=== PATIENT | male | born 1965 ===

== ENCOUNTER 2018-08-03 10:29 | Outpatient (CLI) | payer OTHER | END 2018-08-03 10:30 | disposition home or self-care (01) | LOC: C.PAT 10:29 | DX: M54.5 Low back pain (principal); M51.26 Other intervertebral disc displacement, lumbar region; M51.27 Other intervertebral disc displacement, lumbosacral region; M43.16 Spondylolisthesis, lumbar region ==

== ENCOUNTER 2018-08-19 06:09 | Inpatient (IN) | payer OTHER ==
[2018-08-19 06:39] VITALS: BMI 35.2
[2018-08-19] MEDS ORDERED: Bacitracin 50,000 UNIT in Sodium Chloride 0.9% Irrig 1,000 ML IR SCH (07:30)
[2018-08-19] MEDS ORDERED: Absorbable Gelatin Sponge Size 100 ONE (07:32)
[2018-08-19] MEDS ORDERED: Bupivacaine HCl 0.5% PF (10 ml) Inj ONE ×2 (07:34→13:51)
[2018-08-19] MEDS ORDERED: Lidocaine/Epinephrine 1% 1:100000 10 ML IJ ONE (07:34)
[2018-08-19] MEDS ORDERED: ceFAZolin 1 gm in NS 2 GM/200 ML BAG IVPB ONE (07:37)
[2018-08-19] MEDS ORDERED: Propofol 10 mg/ml 1,000 MG/100 ML VIAL ONE ×2 (07:43→08:31)
[2018-08-19] MEDS ORDERED: Remifentanil 1 mg/3 ml Vial IV ONE ×3 (07:44→11:51)
[2018-08-19] MEDS ORDERED: Propofol 10 mg/ml Inj (20 ML) ONE ×9 (07:51→13:05)
[2018-08-19] MEDS ORDERED: Rocuronium 10 mg/ml (5 ml) ONE (07:52)
[2018-08-19] MEDS ORDERED: Succinylcholine Chloride 20 mg/ml Syr (5 ml) IV ONE (07:52)
[2018-08-19] MEDS ORDERED: Midazolam 2 MG/2 ML VIAL ONE (07:54)
[2018-08-19] MEDS ORDERED: ePHEDrine 50 mg/ml Inj ONE (08:23)
[2018-08-19] MEDS ORDERED: Phenylephrine 10 mg/ml Inj ONE (08:26)
[2018-08-19] MEDS: Thrombin Topical 5,000 Int Units Spray Kit ONE ×2 (09:08→13:24)
[2018-08-19] MEDS ORDERED: Bupivacaine Liposomal Inj 20 ml INFIL ONE (11:41)
[2018-08-19] MEDS ORDERED: Sodium Chloride 0.9% 20 ML IV ONE (11:48)
[2018-08-19] MEDS ORDERED: Thrombin Topical 20,000 Intl Units Spray Kit TOP ONE (13:26)
[2018-08-19] MEDS ORDERED: Bacitracin Ointment 30 GM TUBE ONE (13:53)
[2018-08-19] MEDS ORDERED: HYDROmorphone 0.5 mg/0.5 ml ISec IVP PRN (14:22)
--- NOTE | 2018-08-19 16:20 | RAD ---
Date of service: 08/19/2018 PROCEDURE: Intraoperative fluoroscopy HISTORY: LUMBAR DISC DERANGEMENT COMPARISON: Not available TECHNIQUE: Intraoperative fluoroscopy was provided for lumbar spinal fixation. FINDINGS: Multiple fluoroscopic spot films are submitted during progressive stages of lumbar spinal fixation. IMPRESSION: Fluoroscopy provided.
[2018-08-19] MEDS: Potassium Ch 20mEq in D5-1/2NS 1,000 ML IV SCH (17:30)
[2018-08-20] MEDS: Potassium Ch 20mEq in D5-1/2NS 1,000 ML IV SCH ×4 (03:21→20:30)
--- NOTE | 2018-08-20 06:31 | OP ---
PROCEDURE DATE: 08/19/2018 PREOPERATIVE DIAGNOSIS: Lumbar disk derangement with radiculopathy and chronic low back pain. POSTOPERATIVE DIAGNOSIS: Lumbar disk derangement with radiculopathy and chronic low back pain. PROCEDURE: L4-L5, L5-S1 decompression discectomy, interbody fusion, segmental pedicle screw fixation, posterolateral fusion with iliac autograft. SURGEON: Tariq Vasquez MD CO-SURGEON: Dr Jimmy Glover TYPE OF ANESTHESIA: General endotracheal. ESTIMATED BLOOD LOSS: 1200 mL; 500 mL returned via Cell Saver. COMPLICATIONS: None. JUSTIFICATION: The patient is status post an on-the-job accident low back pain, radiating pain down his lower extremities. He failed rather extensive conservative workup. MRI documented a grade 1 spondylolisthesis with foraminal stenosis at L4-L5 and a severe prolapse with again foraminal stenosis at L5-S1. The patient was offered operative intervention via discectomy interbody fusion, and segmental fixation. The nature of the procedure, the rationale behind it, potential risks and complications, realistic chance of success, recovery time and long-term outlook were all delineated for him through a chief administrative officer. All his questions were answered. He fully understood all of the above and elected to proceed as offered. DESCRIPTION OF PROCEDURE: The patient was taken to the operating room. He was hooked up to neurophysiological monitoring carefully, intubated and anesthetized. He was placed in a Avelino frame in a prone position. Care was taken to protect his face, eyes, endotracheal tube and all bony prominences. His low back area was then hair clipped, scrubbed with acetone and scrub painted and draped in the usual sterile manner. Incision was made overlying the spinous process at L3 down to the sacrum. The Bovie cautery was used to incise the fascia, strip the paraspinal muscles off the spinous processes, lamina of L4 through the sacrum. The exposure was widened out bilaterally to expose the L4 and L5 transverse processes and the sacral ala bleeding controlled throughout with bipolar cautery and thrombinated Gelfoam. At this point, we performed bone harvestation. A 5-gauge trocar was inserted directly into the right superior posterior iliac crest. Approximately 120 mL of bone marrow was aspirated. This was spun down to obtain bone marrow mesenchymal cells which were later used in the bone fusion. Decompression was begun with a Leksell rongeur. The top of the sacrum, the entire L5 spinous process and the inferior L4 removed. The L5 lamina was pinned down as were some of the facets. Again this bone was later used in the bone fusion. At this point, we began the decompression centrally with various sized Kerrison rongeurs performing a central laminectomy from L5-S1 through the entire L5 through the inferior two-thirds of L4. Thecal sac was identified and protected throughout. We then extended the decompression laterally bilaterally to perform generous medial facetectomies at both L4-L5 and L5-S1. The patient had tremendous amount of reactive arthrosis that would be secondary to the slippage at L4-L5 and the collapse at L4-S1. Copious amounts of drilling and use of Kerrison were required to expose the lateral disk at each of these levels. Particularly on the left at L4-S1, there was significant amounts of disk material that were actually digging into the thecal sac and the S1 nerve root that we had to remove via micro-technique i.e., small curette and a 2-mm Kerrison. Disk decompression was begun. Attention was turned to the discectomy interbody fusion. First the right S1 nerve root was gently retracted medially. The disk was then incised. It was markedly collapsed and we required actually an 8-mm scraper to be inserted to begin the discectomy. We used 8 to 11 mm scrapers after which the endplate above all disk material was removed from the right side. The endplate above and below decorticated with various size large curettes. This identical procedure was performed back on the patient's left side after which we packed the disk space with narrow impregnated sponges, additional allograft and products of decompression. We then placed a 9 x 10 mm DePuy carbon fiber fusion cage again filled with these products. It was tapped into the interspace until it was well countersunk and this identical procedure then performed back on the right side. Visual inspection and lateral fluoroscopy confirmed excellent position of both implants. This procedure was then repeated at L4-L5 level. Again the right L5 nerve root gently retracted medially. This was incised, grossly emptied the disk material with pituitary rongeurs and curettes, 8 through 11 mm scrapers were then used. Then the endplate above and below decorticated as well. This procedure was then performed back on the left side after which we placed 9 x 11 mm fusion cages. Again this was tapped into the interspace first on the left side and then on the right and again visual inspection and lateral fluoroscopy confirmed excellent position of both of these implants. We then used the high-speed drill to decorticate the lateral gutters which included the transverse processes at both levels and the sacral ala as well as the lateral facets. Then placement of radicular screws was performed. Technique was used identifying the pedicular entrance both visually as well as with internal delineation with a [place] instrument as well as fluoroscopically. Cortical surface was then drilled. A gearshift passed down the barrel of the pedicle into the vertebral body and finally the appropriate sized screw was placed. Additionally, we used a ball-tipped probe to sound the passageway at each of the six screw points to ensure no breach. Lastly, the gearshift and all screws were stimulated with electrical current while monitoring EMG activity. No screw elicited any EMG activity greater than 15 milliamps. Using this technique, we placed 6.0 diameter screws of various lengths bilaterally at L4 and L5, 7.0 diameter screws of 40 mm length bilaterally at S1. Again final AP and lateral fluoroscopy confirmed excellent position of all 7 screws and none elicited an EMG activity less than 15 milliamps. We then placed the appropriate size WARSTUFFuy titanium locking rods into the three screw-head receptacles at each site. Locking nuts were placed and torque wrenched tightly. Lastly we placed the appropriate sized cross connector between the L4 and L5 screws bilaterally and its three set points were torqued tightly. Lastly we placed all remaining bone graft material into the lateral gutters which were packed to achieve the posterolateral fusion. Final AP and lateral x-ray confirmed excellent position of this construct. At this point, it was ensured that there was no remaining bone graft or foreign matter in and around the thecal sac. This was liberally irrigated with antibiotic solution. It was covered with a layer of thrombinated powder Gelfoam followed by a layer thrombinated solid Gelfoam. The muscle was reapproximated using interrupted 0 Vicryl, the fascia closed using a tight interrupted 0 Vicryl stitch. The wound again irrigated with antibiotic solution. The subcutaneous closed in two separate layers of 2-0 Vicryl. The skin closed with batsheva. Bacitracin ointment and a heavyset dressing was placed. The patient was turned back onto a supine position on a stretcher, easily extubated and noted to be moving his lower extremities with good strength on his way to the recovery room. Neurophysiological monitoring that is free running EMG has a couple of bursts of activity during the decompression but was stable at the end and essentially these remained at their baseline at the end. All counts were correct with the exception of one small cottonoid that was strung up into the drill and shredded. Furthermore, we did take a final AP and lateral x-ray. There was no evidence of any cottonoid or any foreign material other than the intended screws and locking rods. No complications. The patient delivered in a stable and satisfactory condition to the recovery room. Tariq Vasquez MD
--- NOTE | 2018-08-20 11:05 | CP.PCM.PN ---
Subjective - Date & Time of Evaluation Date of Evaluation: 08/20/18 Time of Evaluation: 11:04 - Subjective Subjective: pod1 c/o nausea pain level 3-4/10 no leg pain c/o some numbness in right foot he hs 5/5 st dressing clean mild partial L% dec sensation on right will chnge pain meds and adv act Objective - Vital Signs/Intake and Output Vital Signs (last 24 hours): Temp Pulse Resp BP Pulse Ox 98.9 F 107 H 20 131/75 95 08/20/18 08:47 08/20/18 08:47 08/20/18 08:47 08/20/18 08:47 08/20/18 08:47 Intake and Output: 08/20/18 08/20/18 06:59 18:59 Intake Total 1440 Output Total 1600 Balance -160 - Medications Medications: Current Medications Acetaminophen (Tylenol 325mg Tab) 650 mg PO Q6 PRN PRN Reason: Fever >100.4 F Docusate Sodium (Colace) 100 mg PO BID [facility] Last Admin: 08/20/18 09:34 Dose: 100 mg Hydromorphone/Sodium Chloride (Dilaudid Network Security Consultant) 6 mg IV Q4H PRN; Protocol PRN Reason: Pain, moderate (4-7) Last Admin: 08/20/18 05:45 Dose: 6 mg Potassium Chloride/Dextrose/Sod Cl (Potassium Chl 20 Meq In D5-1/2ns) 1,000 mls @ 100 mls/hr IV .Q10H [facility] Last Admin: 08/20/18 03:21 Dose: 100 mls/hr Ondansetron HCl (Zofran Inj) 4 mg IVP DAILY@ONCE PRN PRN Reason: Nausea/Vomiting Last Admin: 08/20/18 09:34 Dose: 4 mg
[2018-08-20] MEDS: Oxycodone/Acetaminophen 5/325 mg Tab PO PRN ×3 (11:46→19:54)
[2018-08-20] MEDS: Aluminum Hydroxide/Magnesium Hydroxide Susp (30 mL) PO PRN (20:37)
[2018-08-20] MEDS: oxyCODONE 20 mg ER Tab (oxyCONTIN) PO SCH (21:58)
[2018-08-21] MEDS: Oxycodone/Acetaminophen 5/325 mg Tab PO PRN ×5 (00:01→19:21)
[2018-08-21] MEDS: Aluminum Hydroxide/Magnesium Hydroxide Susp (30 mL) PO PRN ×2 (02:12→10:05)
--- NOTE | 2018-08-21 06:18 | OP ---
PROCEDURE DATE: 08/19/2018 PREOPERATIVE DIAGNOSES: Spondylolisthesis with stenosis L4-L5, disc derangement L5-S1, lumbar radiculopathy. POSTOPERATIVE DIAGNOSES: Spondylolisthesis with stenosis L4-L5, disc derangement L5-S1, lumbar radiculopathy. OPERATIVE PROCEDURES: 1. Posterior lumbar interbody and lateral fusion L4-L5, L5-S1. 2. Use of intervertebral devices. 3. Use of segmental spinal instrumentation. 4. Use of autograft by means of bone marrow aspiration. SURGEON: Jimmy Glover MD CO-SURGEON: Tariq Vasquez MD ANESTHESIA: General endotracheal tube intubation. PROCEDURE: The patient was brought to the operating room. General anesthesia was achieved. Intravenous antibiotics were administered. Spinal cord monitoring leads were placed throughout the patient's body. Real-time monitoring was done by technician helper instrument in room, remote monitoring by physician as well. Sequential compression boots were placed in each of the patient's legs and after antibiotics were administered, a Owens catheter was inserted. The patient was then gently transferred onto the operating table and placed prone on a Avelino frame keeping his abdomen free from pressure anteriorly. Care was taken to protect the elbows and knees from pressure points. A sterile drape was used to seal off the patient's perineal region from the operative field and his back was sterilely prepped and draped. Lidocaine with epinephrine was used to infiltrate the site for the incision as located under fluoroscopy. An incision was then made sharply in the midline. It was taken out in subcutaneous tissue using sharp and blunt dissection. Hemostasis was achieved using electrocautery. The fascia was divided and stripped laterally off the spinous processes and lamina out to the level of the transverse processes at L4 and L5 as well as the sacral ala on each side. Soft tissue attachments were cleared using electrocautery and Guerin elevators. Fluoroscopic views demonstrated we were at the appropriate level. A trocar was placed in the pricing associate right ilium and 120 mL of bone marrow aspirate was obtained. This was sterilely passed off to the technician helper instrument who processed it through the harvest system. The collected mesenchymal stem cells were then returned to the OR table where they were used to soak strips and cubes of [place] sponge as well as process through the IC chamber. The IC chamber bone along with the patient's subsequent laminar bone and Optium putty were combined to create a bone grafting substrate. Thrombinated Gelfoam powder was used for hemostasis at the donor site. The Leksell rongeur was used to remove the spinous processes and thin down the lamina, laminectomy then carried out in a caudal and cephalad fashion. This was first on the midline and then laterally on each side. It was taken out lateral enough so that we would have room to subsequently pass the intervertebral devices. There was a great deal of pressure, in particular on the left side around the traversing S1 root due to what appeared to be calcified disc and perhaps a calcified cyst or tissue from the facet joint itself. This was slowly but carefully removed to take get the pressure off the nerve root until we could easily pass the [place] tool along the course of the nerve. Foraminotomies were also carried out for the L4 and L5 roots on each side as well until we could pass the [place] tool out accordingly. The area was irrigated with antibiotic solution. Hemostasis achieved with bipolar cautery as well as thrombinated Gelfoam powder. We then proceeded with the fusion part of the procedure. It was difficult to enter the L5-S1 disc space as the posterior annulus appeared to be again calcified. We were able to develop a small opening on the right side and then the size 8, 9 and 10 endplate tom were used to remove any tissue from the endplates along with the pituitary rongeur and the ring and spoon curettes. An angled down curette was used to try and tamp down material from the midline as well. We then went to the left side where in similar fashion opened up the annulus as best we could, but then we were able to do that better with the endplate tom along with the pituitary rongeur and the curettes. Once we felt the disc space was sufficiently emptied, the bone grafting substrate along with the marrow soaked cubes were packed at the disc space in a 9 x 10 cage packed with the graft was tamped into place and countersunk. We then came back to the right side and removed any remaining disc we could find and then the marrow soaked cubes along with the bone grafting substrate were placed into the disc space and another 9 x 10 cage packed with the graft was tamped into place and countersunk. We then moved up to L4-L5 level and same technique was used to incise the annulus and empty out the disc space with the pituitary rongeur and the endplate tom up to including size 11. Again the ring and spoon curettes along with the down angled curette were used to remove any remaining disc material. We then again moved to the left side where the annulus was incised and any remaining disc material removed again using the same technique, and then subsequent to that, the marrow soaked cubes and bone grafting substrate was packed at the disc space and 9 x 11 cage packed with the graft was tamped into place and countersunk. The final cage was placed coming back to the right side after placement of more graft material and the marrow soaked cubes. We then proceeded with the posterolateral fusion. A high-speed drill was used to decorticate the L4-L5 and L5-S1 facet joints along with the transverse processes and the sacral ala on each side. Under fluoroscopic guidance, the entry point for the right L4 screw was noted and created and the gearshift tool was used to create the channel through the pedicle into the vertebral body. Bony integrity was confirmed with a ball-tip probe and 6 x 50 mm Expedium screw was inserted. The same technique was used on the left side and another 6 x 50 mm screw was placed. Stimulation of the gearshift tool on each side as well as the shank and top of each screw revealed no electrophysiologic abnormalities. The same technique was then used for the L5 level where under fluoroscopic guidance, the drill, gearshift tool, and ball-tip probe were used and again 50 mm x 6.0 Expedium screws were inserted on each side. Electrophysiologic stimulation again revealed no abnormalities. We then moved down to sacral level. We tried to horse show judge the mediolateral entry point lining up the previously two placed screws and then superoinferior starting point was judged with fluoroscopy. Once the drill was used to create the opening, the gearshift tool was used to create the path for the screw and the bony integrity confirmed with a ball-tip probe and 7.0 x 40 mm screw was placed on the left and a 45 mm x 7.0 screw on the right. Again stimulation revealed no abnormalities. The midline was copiously irrigated with antibiotic solution. Hemostasis was achieved with thrombinated Gelfoam powder as well as bipolar cautery. A large piece of solid Gelfoam was used to cover the exposed neural elements. An AP view was taken to demonstrate the screws are in good position. This was the case. An 65-mm precut lordotic rods were used to connect the three screws on each side and the caps appropriately tightened and torqued. A #7 matrix cross-link was used to connect the two rods to add rotational stability and this was tightened and torqued as well. The marrow soaked strips of [place] sponge along with the remaining bone grafting substrate were packed lateral to the rods to bridge the decorticated surfaces. Final AP and lateral views showed excellent position of the hardware and intervertebral devices. The wound was then closed in layers with interrupted sutures of 0 Vicryl for the muscle and the fascia; 10 mL of 0.5% Marcaine along with 20 mL of Exparel diluted with 20 mL of normal saline were injected to the paraspinal tissues to help with postoperative pain relief. The subcutaneous tissue was closed after irrigation in layers with interrupted sutures of 2-0 Vicryl and skin was approximated with batsheva. Bacitracin ointment and sterile dressing were applied. The patient was gently transferred back onto his bed in the supine position. He was awakened and extubated. He was taken to recovery room in stable condition having tolerated the procedure well. He was actively moving all extremities at the time of his transfer and no permanent electrophysiologic abnormalities were noted at the completion of the case. Estimated blood loss was 1200 mL. He received 2 liters of crystalloid during the surgery as well as 500 mL back from the Cell Saver. He had urine output of 50 mL over the course of the operation. Jimmy Glover MD MTDD
[2018-08-21] MEDS: Potassium Ch 20mEq in D5-1/2NS 1,000 ML IV SCH ×3 (06:45→21:40)
[2018-08-21] MEDS: oxyCODONE 20 mg ER Tab (oxyCONTIN) PO SCH ×2 (09:24→21:36)
--- NOTE | 2018-08-21 09:58 | CP.PCM.PN ---
Subjective - Date & Time of Evaluation Date of Evaluation: 08/21/18 Time of Evaluation: 09:57 - Subjective Subjective: DOING WELL LESS PAIN GOOD ST AMBULATING WOUND CLEAN PROBABLE D/C TOMORROW Objective - Vital Signs/Intake and Output Vital Signs (last 24 hours): Temp Pulse Resp BP Pulse Ox 97.6 F 78 20 166/74 H 96 08/21/18 08:41 08/21/18 08:41 08/21/18 08:41 08/21/18 08:41 08/21/18 08:41 - Medications Medications: Current Medications Acetaminophen (Tylenol 325mg Tab) 650 mg PO Q6 PRN PRN Reason: Fever >100.4 F Al Hydrox/Mg Hydrox/Simethicone (Maalox 30 Ml) 30 ml PO Q6 PRN PRN Reason: Indigestion / Heartburn Last Admin: 08/21/18 02:12 Dose: 30 ml Docusate Sodium (Colace) 100 mg PO BID [facility] Last Admin: 08/21/18 09:25 Dose: 100 mg Hydromorphone/Sodium Chloride (Dilaudid [place]) 6 mg IV Q4H PRN; Protocol PRN Reason: Pain, moderate (4-7) Last Admin: 08/20/18 05:45 Dose: 6 mg Potassium Chloride/Dextrose/Sod Cl (Potassium Chl 20 Meq In D5-1/2ns) 1,000 mls @ 100 mls/hr IV .Q10H [facility] Last Admin: 08/21/18 06:45 Dose: Not Given Ondansetron HCl (Zofran Inj) 4 mg IVP DAILY@ONCE PRN PRN Reason: Nausea/Vomiting Last Admin: 08/20/18 09:34 Dose: 4 mg Oxycodone HCl (Oxycontin Extended Release Tab) 20 mg PO Q12 [facility] Last Admin: 08/21/18 09:24 Dose: 20 mg Oxycodone/Acetaminophen (Percocet 5/325 Mg Tab) 1 tab PO Q4H PRN PRN Reason: Pain, Mild (1-3) Stop: 08/23/18 11:31 Last Admin: 08/21/18 04:35 Dose: 1 tab
[2018-08-22] MEDS: Aluminum Hydroxide/Magnesium Hydroxide Susp (30 mL) PO PRN (00:12)
[2018-08-22] MEDS: Oxycodone/Acetaminophen 5/325 mg Tab PO PRN ×2 (00:12→03:16)
[2018-08-22 07:08] VITALS: RESP 20
[2018-08-22 07:55] VITALS: BP 137/82; PULSE 103; TEMP 97.8; O2SAT 96
[2018-08-22] MEDS: Potassium Ch 20mEq in D5-1/2NS 1,000 ML IV SCH (08:09)
[2018-08-22] MEDS: oxyCODONE 20 mg ER Tab (oxyCONTIN) PO SCH (09:09)
[2018-08-22] MEDS ORDERED: Bacitracin 500 Units/gm Oint Foilpak UD TOP SCH (12:00)
== END 2018-08-22 13:29 | disposition home or self-care (01) | DRG 455 ==
LOC: C.9S 06:09 → C.6T 17:58
PROVIDERS: ADMIT Neurological Surgery; ATTEND Neurological Surgery
PROC: 0SG1071 Fusion of 2 or more Lumbar Vertebral Joints with Autologous Tissue Substitute, Posterior Approach, Posterior Column, Open Approach (ICD-10-PCS; 2018-08-19)
PROC: 0SB40ZZ Excision of Lumbosacral Disc, Open Approach (ICD-10-PCS; 2018-08-19)
PROC: 0QB20ZZ Excision of Right Pelvic Bone, Open Approach (ICD-10-PCS; 2018-08-19)
PROC: 0SG30AJ Fusion of Lumbosacral Joint with Interbody Fusion Device, Posterior Approach, Anterior Column, Open Approach (ICD-10-PCS; principal; 2018-08-19 07:30)
DX: M43.17 Spondylolisthesis, lumbosacral region (principal); M48.07 Spinal stenosis, lumbosacral region; M54.17 Radiculopathy, lumbosacral region